=== PATIENT | male | born 1935 | race Caucasian/White ===

== ENCOUNTER 2018-11-29 17:00 | Emergency (ER) | payer SELFPAY ==
[~2018-11-29] VITALS: Ht 182.9 cm; Wt 81.2 kg
[2018-11-29] MEDS ORDERED: CHOL10002 PO (17:32)
[2018-11-29] MEDS ORDERED: Capsaicin60 GM TOP (17:32)
[2018-11-29] MEDS ORDERED: GABA300 PO (17:33)
[2018-11-29] MEDS ORDERED: MELA3 PO (17:33)
[2018-11-29] MEDS ORDERED: ZESTORETIC 20-1 EAC1 PO (17:33)
[2018-11-29] MEDS ORDERED: METF500C PO (17:34)
[2018-11-29] MEDS ORDERED: METO25ER PO (17:34)
[2018-11-29] MEDS ORDERED: HYDHCL25 PO (17:34)
[2018-11-29] MEDS ORDERED: SERT50 PO (17:35)
[2018-11-29] MEDS ORDERED: Aspirin EC81 MG PO (17:35)
== END 2018-11-29 17:55 | disposition home or self-care (01) ==
LOC: ER 17:00
DX: S70.12XA Contusion of left thigh, initial encounter (principal); Z79.899 Other long term (current) drug therapy; Z79.84 Long term (current) use of oral hypoglycemic drugs; Z79.82 Long term (current) use of aspirin; W19.XXXA Unspecified fall, initial encounter
CPT/HCPCS: 73552; 99283-25

== ENCOUNTER 2021-06-11 19:28 | Emergency (ER) | payer OTHER ==
[~2021-06-11] VITALS: Ht 182.9 cm; Wt 81.2 kg
[~2021-06-11 19:28] MED LIST: Aspirin EC81 MG PO; CHOL10002 PO; Capsaicin60 GM TOP; GABA300 PO; HYDHCL25 PO; MELA3 PO; METF500C PO; METO25ER PO; SERT50 PO; ZESTORETIC 20-1 EAC1 PO
[2021-06-11 22:11] LABS: BASOPHILS ABSOLUTE AUTO 0.04 K/mm3 (0.00-0.23); BASOPHILS PERCENT AUTO 1 % (0-2); EOSINOPHILS ABSOLUTE AUTO 0.09 K/mm3 (0.00-0.68); EOSINOPHILS PERCENT AUTO 1 % (0-6); Hematocrit 31.8 % (37.0-53.0); Hemoglobin 10.9 g/dL (13.5-17.5); IMMATURE GRAN ABSOLUTE AUTO 0.02 K/mm3 (0.00-0.10); IMMATURE GRAN PERCENT AUTO 0 % (0-1); LYMPHOCYTES ABSOLUTE AUTO 1.62 K/mm3 (0.84-5.20); LYMPHOCYTES PERCENT AUTO 22 % (21-46); MONOCYTES ABSOLUTE AUTO 0.66 K/mm3 (0.16-1.47); MONOCYTES PERCENT AUTO 9 % (4-13); Mean Corpuscular HGB 31.3 pg (26.0-34.0); Mean Corpuscular HGB Conc 34.3 g/dL (31.5-36.5); Mean Corpuscular Volume 91 fL (80-100); Mean Platelet Volume 10.8 fL (9.1-12.4); NEUTROPHILS ABSOLUTE AUTO 4.82 K/mm3 (1.96-9.15); NEUTROPHILS PERCENT AUTO 67 % (41-73); Platelet Count 190 K/mm3 (150-400); RDW Coefficient Variation 13.2 % (11.7-14.2); RDW Standard Deviation 43.4 fL (35.1-46.3); Red Blood Cell Count 3.48 M/mm3 (4.30-5.90); White Blood Cell Count 7.25 K/mm3 (4.00-11.30)
[2021-06-11 22:25] LABS: Bun/Creatinine Ratio 20.7 (12.0-20.0); Calcium, Blood 9.1 mg/dL (8.5-10.1); Creatinine, Blood 1.5 mg/dL (0.60-1.20); Magnesium, Blood 1.9 mg/dL (1.6-2.4); Potassium, Blood 4.1 mmol/L (3.5-5.5)
== END 2021-06-12 07:49 | disposition left against medical advice (07) ==
LOC: ER 19:28
PROVIDERS: Student in an Organized Health Care Education/Training Program
DX: M54.31 Sciatica, right side (principal); I10 Essential (primary) hypertension; E11.9 Type 2 diabetes mellitus without complications; Z79.899 Other long term (current) drug therapy; Z79.84 Long term (current) use of oral hypoglycemic drugs; Z79.82 Long term (current) use of aspirin
CPT/HCPCS: 72170; 80048; 82947; 83735; 85025; 96372; 99283-25; A9270; J1885; J7030